=== PATIENT | male | born 1985 | race Two or more races ===

== ENCOUNTER 2017-05-05 10:48 | Inpatient (IN) | payer OTHER ==
[2017-05-05 11:28] VITALS: BMI 26.6
--- NOTE | 2017-05-05 12:44 | HP ---
CIWA Score - CIWA Score Nausea/Vomitin-No Nausea/No Vomiting Muscle Tremors: 3 Anxiety: 4-Mod. Anxious/Guarded Agitation: 3 Paroxysmal Sweats: 1-Minimal Palms Moist Orientation: 0-Oriented Tacttile Disturbances: 0-None Auditory Disturbances: 0-None Visual Disturbances: 0-None Headache: 0-None Present CIWA-Ar Total Score: 11 Admission ROS BHS - HPI Chief Complaint: DETOX TX FOR ALCOHOL DEPENDENCE Allergies/Adverse Reactions: Allergies Allergy/AdvReac Type Severity Reaction Status Date / Time No Known Allergies Allergy Verified 05/05/17 11:54 History of Present Illness: 32 Y/O H/MALE WITH A HX OF ALCOHOL DEPENDENCE SEEKING DETOX TX. FIRST TIME HERE. Exam Limitations: No Limitations - Ebola screening Have you traveled outside of the country in the last 21 days: No Have you had contact with anyone from an Ebola affected area: No Have you been sick,other than usual withdrawal symptoms: No Do you have a fever: No - Review of Systems Constitutional: Night Sweats, Changes in sleep EENT: reports: Blurred Vision (WEARS CONTACTS) Respiratory: reports: No Symptoms reported Cardiac: reports: No Symptoms Reported GI: reports: Diarrhea, Nausea, Poor Fluid Intake, Vomiting : reports: No Symptoms Reported Musculoskeletal: reports: Back Pain Integumentary: reports: No Symptoms Reported Neuro: reports: No Symptoms reported Endocrine: reports: No Symptoms Reported Hematology: reports: Anemia (WHEN YOUNGER) Psychiatric: reports: Orientated x3, Anxious, Depressed Other Systems: Reviewed and Negative Patient History - Patient Medical History Hx Anemia: Yes (AT YOUNG AGE) Hx Asthma: No Hx Chronic Obstructive Pulmonary Disease (COPD): No Hx Cardiac Disorders: No Hx Hypertension: No Hx Hypercholesterolemia: No HX Cerebrovascular Accident: No Hx Seizures: No Hx Diabetes: No Hx Gastrointestinal Disorders: Yes (PPI IN THE PAST;TAKES TUMS) Hx Genitourinary Disorders: No Hx Sexually Transmitted Disorders: No Hx Renal Disease (ESRD): No Hx Thyroid Disease: No Hx Human Immunodeficiency Virus (HIV): No (NEGATIVE HX) Hx Hepatitis C: No Hx Depression: Yes ( A TEENAGER WAS ON MED BUT NOT TAKE ANYMORE SINCE 10-15 YRS AGO.) Hx Suicide Attempt: No (DENIES ) Hx Bipolar Disorder: No Hx Schizophrenia: No - Patient Surgical History Past Surgical History: Yes Hx Neurologic Surgery: No Hx Cataract Extraction: No Hx Cardiac Surgery: No Hx Lung Surgery: No Hx Breast Surgery: No Hx Breast Biopsy: No Hx Abdominal Surgery: No Hx Appendectomy: No Hx Cholecystectomy: No Hx Genitourinary Surgery: No Hx Orthopedic Surgery: No Other Surgical History: PLASTIC SURGERY ON RIGHT UPPER EYELID-DUE TO ROCK INJURY Anesthesia Reaction: No - PPD History Previous Implant?: Yes Documented Results: Negative w/o proof Implanted On Prior [facility] Admission?: No PPD to be Administered?: Yes - Reproductive History Patient is a Female of Child Bearing Age (11 -55 yrs old): No (MALE) Patient : (N/A) - Smoking Cessation Smoking history: Current every day smoker Have you smoked in the past 12 months: Yes If you are a former smoker, when did you quit?: PT USES E CIGARETTE. Hx Chewing Tobacco Use: No Initiated information on smoking cessation: Yes 'Breaking Loose' booklet given: 05/05/17 - Substance & Tx. History Hx Alcohol Use: Yes (BEER/WINE) Hx Substance Use: No (DENIES) Substance Use Type: Alcohol Hx Substance Use Treatment: Yes (NEVER IN TREATMENT PER PT) - Substances Abused Alcohol Route: Oral Frequency: Daily Amount used: 12PK BEER OR MAGNUM OF WINE Age of first use: 16 Date of Last Use: 05/04/17 Family Disease History - Family Disease History Family Disease History: Other: Grandparent (ALCOHOLISM), Father (ALCOHOLISM), Mother (ALCOHOLISM) Admission Physical Exam BHS - Vital Signs Vital Signs: Vital Signs - 24 hr 05/05/17 11:26 Temperature 97.3 F L Pulse Rate 72 Respiratory 18 Rate Blood Pressure 130/85 - Physical General Appearance: Yes: Mild Distress, Irritable, Anxious HEENTM: Yes: EOMI, Normocephalic, SONIDO, Pharynx Normal Respiratory: Yes: Chest Non-Tender, Lungs Clear, Normal Breath Sounds, No Respiratory Distress Neck: Yes: No masses,lesions,Nodules, Supple, Trachea in good position Breast: Yes: Breast Exam Deferred Cardiology: Yes: Regular Rhythm, Regular Rate, S1, S2 Abdominal: Yes: Normal Bowel Sounds, Non Tender, Flat, Soft Genitourinary: Yes: Other (N/C) Musculoskeletal: Yes: full range of Motion, Gait Steady Extremities: Yes: Normal Range of Motion, Non-Tender Neurological: Yes: lithopone charger II-XII NML intact, Fully Oriented, Alert, Motor Strength 5/5, Normal Mood/Affect Integumentary: Yes: Dry, Warm Lymphatic: Yes: Within Normal Limits - Diagnostic (1) Alcohol dependence with uncomplicated withdrawal Current Visit: Yes Status: Acute (2) History of anemia Current Visit: Yes Status: Suspected Comment: AT YOUNG AGE (3) GERD (gastroesophageal reflux disease) Current Visit: Yes Status: Acute Qualifiers: Esophagitis presence: esophagitis presence not specified Qualified Code(s): K21.9 - Gastro-esophageal reflux disease without esophagitis; K21.9 - Gastro-esophageal reflux disease without esophagitis; K21.9 - Gastro-esophageal reflux disease without esophagitis Comment: NO CURRENT MED Cleared for Admission BHS - Detox or Rehab BHS Level of Care: Medically Managed Detox Regimen/Protocol: Librium BHS Breath Alcohol Content Breath Alcohol Content: 0 Urine Drug Screen - Results Drug Screen Negative: Yes
[2017-05-05] MEDS ORDERED: MENTHOL/PHENOL 1 EACH UD MM PRN (13:30)
[2017-05-05] MEDS ORDERED: MAGNESIUM HYDROX 2400MG/30ML ORAL SUSPENSION 30 ML CUP PO PRN (13:30)
[2017-05-05] MEDS ORDERED: P-EPHED 60MG/TRIPROLIDI 2.5MG TABLET PO PRN (13:30)
[2017-05-05] MEDS ORDERED: MAG HYDROX/AL HYDROX/SIMETH 30 ML UNIT-DOSE CUP PO PRN (13:30)
[2017-05-05] MEDS ORDERED: LOPERAMIDE HCL 2 MG CAPSULE PO PRN (13:30)
[2017-05-05] MEDS ORDERED: MAGNESIUM CITRATE 300 ML BOTTLE PO PRN (13:30)
[2017-05-05] MEDS ORDERED: chlordiazePOXIDE HCL 25 MG CAPSULE PO PRN (13:30)
[2017-05-05] MEDS ORDERED: ACETAMINOPHEN 325 MG TABLET (FP) PO PRN (13:30)
[2017-05-05] MEDS ORDERED: IBUPROFEN 400 MG TABLET (FP) PO PRN (13:30)
[2017-05-05] MEDS ORDERED: guaiFENesin/D-METHORPHAN HB 10 ML UNIT-DOSE CUPS PO PRN (13:30)
[2017-05-05] MEDS ORDERED: chlordiazePOXIDE HCL 25 MG CAPSULE PO ONE (14:01)
[2017-05-05] MEDS: NICOTINE 14 MG/24 HOURS TOPICAL PATCH TD SCH (15:18)
[2017-05-05] MEDS: NICOTINE POLACRILEX 2 MG GUM BUC PRN ×2 (15:22→20:54)
[2017-05-05 16:24] LABS: MCH 28.9 pg (25.7-33.7); MCHC 33.3 g/dl (32.0-35.9); MEAN CELL VOLUME 86.7 fl (80-96); MEAN PLT VOLUME 8.5 fl (7.5-11.1); PLATELET COUNT 290 K/MM3 (134-434); RDW 13.5 % (11.9-15.9); WHITE BLOOD COUNT 6.2 K/mm3 (4.0-10.0)
[2017-05-05 16:24] LABS: URINE APPEARANCE CLEAR; URINE BILIRUBIN NEGATIVE (NEGATIVE); URINE BLOOD NEGATIVE (NEGATIVE); URINE COLOR YELLOW; URINE GLUCOSE (UA) NEGATIVE (NEGATIVE); URINE KETONE NEGATIVE (NEGATIVE); URINE NITRITE NEGATIVE (NEGATIVE); URINE PROTEIN NEGATIVE (NEGATIVE); URINE UROBILINOGEN NEGATIVE mg/dL (0.2-1.0)
[2017-05-05 16:33] LABS: ALBUMIN 4.7 g/dl (3.4-5.0); ANION GAP 4 (8-16); CALCIUM 9.4 mg/dL (8.5-10.1); CO2 31 mmol/L (21-32); CREATININE 0.9 mg/dL (0.7-1.3); GLUCOSE,RANDOM 101 mg/dL (74-106); SGOT/AST 47 U/L (15-37); SGPT/ALT 74 U/L (12-78)
[2017-05-05 16:34] LABS: ALK PHOS 83 U/L (45-117)
[2017-05-05 17:13] LABS: SICKLE CELL SCREEN NEGATIVE (NEGATIVE)
[2017-05-05 18:04] LABS: URINE LEUK ESTERASE Negative (NEGATIVE)
[2017-05-05] MEDS: chlordiazePOXIDE HCL 25 MG CAPSULE PO SCH ×2 (18:28→22:15)
[2017-05-05] MEDS: THIAMINE HCL 100 MG TABLET (FP) PO SCH (22:15)
[2017-05-06] MEDS: chlordiazePOXIDE HCL 25 MG CAPSULE PO SCH ×4 (05:49→22:10)
[2017-05-06] MEDS: NICOTINE POLACRILEX 2 MG GUM BUC PRN (08:00)
--- NOTE | 2017-05-06 09:57 | EKG ---
Test Reason : Blood Pressure : / mmHG Vent. Rate : 070 BPM Atrial Rate : 070 BPM P-R Int : 134 ms QRS Dur : 084 ms QT Int : 378 ms P-R-T Axes : 029 051 029 degrees QTc Int : 408 ms NORMAL SINUS RHYTHM NORMAL ECG NO PREVIOUS ECGS AVAILABLE Confirmed by KATTY HINES MD ([id number]) on 05/06/2017 9:57:15 AM Referred By: Confirmed By:KATTY HINES MD
[2017-05-06] MEDS: NICOTINE 14 MG/24 HOURS TOPICAL PATCH TD SCH (10:23)
[2017-05-06] MEDS: PRENATAL VITAMINS W/ FOLIC ACID TABLET (FP) PO SCH (10:23)
[2017-05-06] MEDS: NICOTINE POLACRILEX 4 MG GUM BUC PRN ×4 (11:03→22:10)
--- NOTE | 2017-05-06 11:50 | PN ---
S CIWA - CIWA Score Nausea/Vomitin Muscle Tremors: 3 Anxiety: 3 Agitation: 3 Paroxysmal Sweats: 1-Minimal Palms Moist Orientation: 0-Oriented Tacttile Disturbances: 1-Very Mild Itch/Numbness Auditory Disturbances: 1-Very Mild Visual Disturbances: 0-None Headache: 2-Mild CIWA-Ar Total Score: 17 BHS Progress Note (SOAP) Subjective: ALERT,IRRITABLE,ANXIOUS,INTERRUPTED SLEEP,TREMOR Objective: 05/06/17 11:48 Vital Signs Temperature 97.9 F 05/06/17 09:32 Pulse Rate 85 05/06/17 09:32 Respiratory Rate 18 05/06/17 09:32 Blood Pressure 152/100 05/06/17 09:32 O2 Sat by Pulse Oximetry (%) EKG NSR,NORMAL ECG Laboratory Last Values WBC 6.2 K/mm3 (4.0-10.0) 05/05/17 13:00 RBC 5.63 M/mm3 (4.00-5.60) H 05/05/17 13:00 Hgb 16.3 GM/dL (11.7-16.9) 05/05/17 13:00 Hct 48.8 % (35.4-49) 05/05/17 13:00 MCV 86.7 fl (80-96) 05/05/17 13:00 MCH 28.9 pg (25.7-33.7) 05/05/17 13:00 MCHC 33.3 g/dl (32.0-35.9) 05/05/17 13:00 RDW 13.5 % (11.9-15.9) 05/05/17 13:00 Plt Count 290 K/MM3 (134-434) 05/05/17 13:00 MPV 8.5 fl (7.5-11.1) 05/05/17 13:00 Sickle Cell Screen Negative (NEGATIVE) 05/05/17 13:00 Sodium 139 mmol/L (136-145) 05/05/17 13:00 Potassium 5.1 mmol/L (3.5-5.1) 05/05/17 13:00 Chloride 104 mmol/L (98-107) 05/05/17 13:00 Carbon Dioxide 31 mmol/L (21-32) 05/05/17 13:00 Anion Gap 4 (8-16) L 05/05/17 13:00 BUN 11 mg/dL (7-18) 05/05/17 13:00 Creatinine 0.9 mg/dL (0.7-1.3) 05/05/17 13:00 Creat Clearance w eGFR > 60 (>60) 05/05/17 13:00 Random Glucose 101 mg/dL (74-106) 05/05/17 13:00 Calcium 9.4 mg/dL (8.5-10.1) 05/05/17 13:00 Total Bilirubin 1.0 mg/dL (0.2-1.0) 05/05/17 13:00 AST 47 U/L (15-37) H 05/05/17 13:00 ALT 74 U/L (12-78) 05/05/17 13:00 Alkaline Phosphatase 83 U/L (45-117) 05/05/17 13:00 Total Protein 8.0 g/dl (6.4-8.2) 05/05/17 13:00 Albumin 4.7 g/dl (3.4-5.0) 05/05/17 13:00 Urine Color Yellow 05/05/17 14:00 Urine Appearance Clear 05/05/17 14:00 Urine pH 5.0 (5.0-8.0) 05/05/17 14:00 Ur Specific [place] 1.021 (1.001-1.035) 05/05/17 14:00 Urine Protein Negative (NEGATIVE) 05/05/17 14:00 Urine Glucose (UA) Negative (NEGATIVE) 05/05/17 14:00 Urine Ketones Negative (NEGATIVE) 05/05/17 14:00 Urine Blood Negative (NEGATIVE) 05/05/17 14:00 Urine Nitrite Negative (NEGATIVE) 05/05/17 14:00 Urine Bilirubin Negative (NEGATIVE) 05/05/17 14:00 Urine Urobilinogen Negative mg/dL (0.2-1.0) 05/05/17 14:00 Ur Leukocyte Esterase Negative (NEGATIVE) 05/05/17 14:00 RPR Titer Nonreactive (NONREACTIVE) 05/05/17 13:00 Assessment: 05/06/17 11:49 WITHDRAWAL SYMPTOM Plan: CONTINUE DETOX
[2017-05-06] MEDS ORDERED: FLU VACCINE QUAD 60 MCG/0.5 ML (MDV 17-18) IM ONE (12:00)
--- NOTE | 2017-05-06 15:08 | CONSULT ---
[facility] Psychiatric Consult - Data Date of interview: 05/06/17 Admission source: [facility] Identifying data: First admission to [facility] for this 32 y/o male seeking detox treatment on for alcohol dependence.Patient is , father of one,domiciled and currently employed. Substance Abuse History: Discussed in this session.Mr Keenan admits to active use of alcohol.He confirms this [facility] report. Smoking history: Current every day smoker. Have you smoked in the past 12 months: Yes. If you are a former smoker , when did you quit?: PT USES E CIGARETTE. Hx Chewing Tobacco Use: No. Initiated information on smoking cessation: Yes. 'Breaking Loose' booklet given : 05/05/17. - Substance & Tx. History. Hx Alcohol Use: Yes (BEER/WINE). Hx Substance Use: No (DENIES). Substance Use Type: Alcohol. Hx Substance Use Treatment: Yes (NEVER IN TREATMENT PER PT). - Substances Abused. Alcohol. Route: Oral. Frequency: Daily. Amount used: 12PK BEER OR MAGNUM OF WINE. Age of first use: 16. Date of Last Use: 05/04/17 Medical History: Patient endorses good general health.Remote history of plastic surgery (injury to right upper eyelid). Psychiatric History: Patient denies. Physical/Sexual Abuse/Trauma History: Patient denies history of abuse. Additional Comment: Drug screen is negative. Mental Status Exam - Mental Status Exam Alert and Oriented to: Time, Place, Person Cognitive Function: Good Patient Appearance: Well Groomed Mood: Hopeful, Euthymic Affect: Appropriate, Normal Range Patient Behavior: Fatigued, Appropriate, Cooperative Speech Pattern: Clear, Appropriate Voice Loudness: Normal Thought Process: Intact, Goal Oriented Thought Disorder: Not Present Hallucinations: Denies Suicidal Ideation: Denies Homicidal Ideation: Denies Insight/Judgement: Poor Sleep: Well Appetite: Good Muscle strength/Tone: Normal Gait/Station: Normal Psychiatric Findings - Problem List ([place] 1, 2,3) (1) Alcohol dependence with uncomplicated withdrawal Current Visit: Yes Status: Acute - Initial Treatment Plan Initial Treatment Plan: Psychoeducation.Detoxification.Observation.
[2017-05-06] MEDS: THIAMINE HCL 100 MG TABLET (FP) PO SCH (22:10)
[2017-05-06] MEDS: hydrOXYzine PAMOATE 25 MG CAPSULE (FP) PO PRN (22:12)
[2017-05-07] MEDS: NICOTINE POLACRILEX 4 MG GUM BUC PRN ×5 (08:47→22:17)
[2017-05-07] MEDS: PRENATAL VITAMINS W/ FOLIC ACID TABLET (FP) PO SCH (10:19)
[2017-05-07] MEDS: NICOTINE 14 MG/24 HOURS TOPICAL PATCH TD SCH (10:20)
[2017-05-07] MEDS: chlordiazePOXIDE HCL 25 MG CAPSULE PO SCH (10:20)
--- NOTE | 2017-05-07 15:37 | PN ---
S CIWA - CIWA Score Nausea/Vomitin-No Nausea/No Vomiting Muscle Tremors: 3 Anxiety: 4-Mod. Anxious/Guarded Agitation: 4-Moderately Restless Paroxysmal Sweats: 3 Orientation: 0-Oriented Tacttile Disturbances: 0-None Auditory Disturbances: 0-None Visual Disturbances: 0-None Headache: 0-None Present CIWA-Ar Total Score: 14 BHS Progress Note (SOAP) Subjective: Anxiety,tremors,sweating,interrupted sleep,restless Objective: 05/07/17 15:35 Vital Signs - 8 hr 05/07/17 05/07/17 10:15 14:57 Temperature 97.2 F L 98.2 F Pulse Rate 79 95 H Respiratory 18 18 Rate Blood Pressure 127/78 128/76 Laboratory Tests 05/05/17 05/05/17 05/05/17 13:00 13:00 13:00 WBC 6.2 RBC 5.63 H Hgb 16.3 Hct 48.8 MCV 86.7 MCH 28.9 MCHC 33.3 RDW 13.5 Plt Count 290 MPV 8.5 Sickle Cell Screen Negative Sodium 139 Potassium 5.1 Chloride 104 Carbon Dioxide 31 Anion Gap 4 L BUN 11 Creatinine 0.9 Creat Clearance w eGFR > 60 Random Glucose 101 Calcium 9.4 Total Bilirubin 1.0 AST 47 H ALT 74 Alkaline Phosphatase 83 Total Protein 8.0 Albumin 4.7 Urine Color Urine Appearance Urine pH Ur Specific [place] Urine Protein Urine Glucose (UA) Urine Ketones Urine Blood Urine Nitrite Urine Bilirubin Urine Urobilinogen Ur Leukocyte Esterase RPR Titer Nonreactive 05/05/17 14:00 WBC RBC Hgb Hct MCV MCH MCHC RDW Plt Count MPV Sickle Cell Screen Sodium Potassium Chloride Carbon Dioxide Anion Gap BUN Creatinine Creat Clearance w eGFR Random Glucose Calcium Total Bilirubin AST ALT Alkaline Phosphatase Total Protein Albumin Urine Color Yellow Urine Appearance Clear Urine pH 5.0 Ur Specific [place] 1.021 Urine Protein Negative Urine Glucose (UA) Negative Urine Ketones Negative Urine Blood Negative Urine Nitrite Negative Urine Bilirubin Negative Urine Urobilinogen Negative Ur Leukocyte Esterase Negative RPR Titer labs noted Assessment: 05/07/17 15:36 Withdrawal sx. Plan: Continue detox
[2017-05-07] MEDS ORDERED: chlordiazePOXIDE 5 MG CAPSULE PO SCH (17:00)
[2017-05-07] MEDS: chlordiazePOXIDE HCL 10 MG CAPSULE PO SCH ×2 (17:07→22:13)
[2017-05-07] MEDS: THIAMINE HCL 100 MG TABLET (FP) PO SCH (22:13)
[2017-05-07] MEDS: hydrOXYzine PAMOATE 25 MG CAPSULE (FP) PO PRN (22:15)
[2017-05-08] MEDS: chlordiazePOXIDE HCL 25 MG CAPSULE PO SCH (00:54)
[2017-05-08] MEDS: chlordiazePOXIDE HCL 10 MG CAPSULE PO SCH (05:54)
[2017-05-08 10:19] VITALS: BP 132/57; PULSE 67; TEMP 95.9
--- NOTE | 2017-05-08 10:29 | DS ---
[facility] Detox Discharge Summary Admission Date: 05/05/17 Discharge Date: 05/08/17 - History Present History: Alcohol Dependence Pertinent Past History: GERD - Physical Exam Results Vital Signs: Vital Signs Temperature 95.9 F L 05/08/17 10:00 Pulse Rate 67 05/08/17 10:00 Respiratory Rate 16 05/08/17 10:00 Blood Pressure 132/57 05/08/17 10:00 O2 Sat by Pulse Oximetry (%) Pertinent Admission Physical Exam Findings: Withdrawal sx. Laboratory Last Values WBC 6.2 K/mm3 (4.0-10.0) 05/05/17 13:00 RBC 5.63 M/mm3 (4.00-5.60) H 05/05/17 13:00 Hgb 16.3 GM/dL (11.7-16.9) 05/05/17 13:00 Hct 48.8 % (35.4-49) 05/05/17 13:00 MCV 86.7 fl (80-96) 05/05/17 13:00 MCH 28.9 pg (25.7-33.7) 05/05/17 13:00 MCHC 33.3 g/dl (32.0-35.9) 05/05/17 13:00 RDW 13.5 % (11.9-15.9) 05/05/17 13:00 Plt Count 290 K/MM3 (134-434) 05/05/17 13:00 MPV 8.5 fl (7.5-11.1) 05/05/17 13:00 Sickle Cell Screen Negative (NEGATIVE) 05/05/17 13:00 Sodium 139 mmol/L (136-145) 05/05/17 13:00 Potassium 5.1 mmol/L (3.5-5.1) 05/05/17 13:00 Chloride 104 mmol/L (98-107) 05/05/17 13:00 Carbon Dioxide 31 mmol/L (21-32) 05/05/17 13:00 Anion Gap 4 (8-16) L 05/05/17 13:00 BUN 11 mg/dL (7-18) 05/05/17 13:00 Creatinine 0.9 mg/dL (0.7-1.3) 05/05/17 13:00 Creat Clearance w eGFR > 60 (>60) 05/05/17 13:00 Random Glucose 101 mg/dL (74-106) 05/05/17 13:00 Calcium 9.4 mg/dL (8.5-10.1) 05/05/17 13:00 Total Bilirubin 1.0 mg/dL (0.2-1.0) 05/05/17 13:00 AST 47 U/L (15-37) H 05/05/17 13:00 ALT 74 U/L (12-78) 05/05/17 13:00 Alkaline Phosphatase 83 U/L (45-117) 05/05/17 13:00 Total Protein 8.0 g/dl (6.4-8.2) 05/05/17 13:00 Albumin 4.7 g/dl (3.4-5.0) 05/05/17 13:00 Urine Color Yellow 05/05/17 14:00 Urine Appearance Clear 05/05/17 14:00 Urine pH 5.0 (5.0-8.0) 05/05/17 14:00 Ur Specific [place] 1.021 (1.001-1.035) 05/05/17 14:00 Urine Protein Negative (NEGATIVE) 05/05/17 14:00 Urine Glucose (UA) Negative (NEGATIVE) 05/05/17 14:00 Urine Ketones Negative (NEGATIVE) 05/05/17 14:00 Urine Blood Negative (NEGATIVE) 05/05/17 14:00 Urine Nitrite Negative (NEGATIVE) 05/05/17 14:00 Urine Bilirubin Negative (NEGATIVE) 05/05/17 14:00 Urine Urobilinogen Negative mg/dL (0.2-1.0) 05/05/17 14:00 Ur Leukocyte Esterase Negative (NEGATIVE) 05/05/17 14:00 RPR Titer Nonreactive (NONREACTIVE) 05/05/17 13:00 labs noted - Treatment Hospital Course: Detox Protocol Followed, Detoxed Safely, Responded well, Discharged Condition Good, Rehab Referral Accepted Patient has Accepted a Rehab Referral to: 12 Step meetings - Medication Discharge Medications: Ambulatory Orders NK [No Known Home Medication] 05/05/17 - Diagnosis (1) Alcohol dependence with uncomplicated withdrawal Current Visit: Yes Status: Acute (2) GERD (gastroesophageal reflux disease) Current Visit: Yes Status: Acute Qualifiers: Esophagitis presence: esophagitis presence not specified Qualified Code(s): K21.9 - Gastro-esophageal reflux disease without esophagitis; K21.9 - Gastro-esophageal reflux disease without esophagitis; K21.9 - Gastro-esophageal reflux disease without esophagitis - AMA Did Patient Leave Against Medical Advice: No
[2017-05-08] MEDS ORDERED: chlordiazePOXIDE HCL 10 MG CAPSULE PO SCH (17:00)
== END 2017-05-08 09:35 | disposition home or self-care (01) | DRG 897 ==
LOC: YASAS 10:48 → Y6N 13:02
PROVIDERS: ADMIT Internal Medicine; ATTEND Internal Medicine
PROC: HZ2ZZZZ Detoxification Services for Substance Abuse Treatment (ICD-10-PCS; principal; 2017-05-05)
DX: F10.230 Alcohol dependence with withdrawal, uncomplicated (principal); F17.200 Nicotine dependence, unspecified, uncomplicated; K21.0 Gastro-esophageal reflux disease with esophagitis; Z86.2 Personal history of diseases of the blood and blood-forming organs and certain disorders involving the immune mechanism
CPT/HCPCS: 36415; 80053; 81003; 85027; 85660; 86593; 90688; 93005; 93010; G0008